=== PATIENT | female | born 1995 | race Two or more races ===

== ENCOUNTER 2024-08-16 08:19 | Emergency (ER) | payer MEDICAID, SELFPAY ==
[2024-08-16 09:01] VITALS: BP 108/74; PULSE 84; RESP 18; TEMP 36.9; O2SAT 100; BMI 23.3
--- NOTE | 2024-08-16 09:02 | XR_ITS ---
Examination: Cervical spine 3 views TECHNIQUE: AP lateral coned AP odontoid cervical spine 3 views Exam date and time: August 16, 2024 at 0914 hours INDICATIONS: Neck pain beginning 5 days ago no trauma FINDINGS: Straightening normal cervical lordosis Cervical thoracic dextroscoliosis 11 degrees No cervical fracture. Intact odontoid No significant cervical disc narrowing IMPRESSION: Cervical thoracic dextroscoliosis 11 degrees:
--- NOTE | 2024-08-16 09:02 | XR_ITS ---
Examination: Thoracic spine 3 views Technique one AP lateral coned lateral upper dorsal spine 3 views Exam date and time: August 16, 2024 at 0921 hours INDICATIONS: Upper back pain beginning 5 days ago. FINDINGS: Upper thoracic dextroscoliosis 9 degrees Lower thoracic levoscoliosis 8 degrees No thoracic fracture No significant thoracic disc narrowing Intact pedicles No cortical bone destruction IMPRESSION: Scoliosis as above
[2024-08-16] MEDS: IBUPROFEN TAB 600 MG TABLET PO (09:33)
[2024-08-16] MEDS: CYCLObenzaPRINE 5 MG TABLET PO (09:34)
--- NOTE | 2024-08-16 10:08 | PD.EDBACK ---
ED Back Injury Pain RME/HPI General Chief Complaint: Back Pain/Injury Stated Complaint: Upper back pain X 5 days Time Seen by Provider: 08/16/24 08:52 Source: patient Arrival date/time: 08/16/24 08:19 28-year-old female presents emergency department with complaints of upper back pain and neck pain. Patient denies any injury reports pain is elicited with movement or turning of her upper body. She does report her symptoms have been lingering on for the last 4 to 5 days. Is unaware if she slept wrong causes some torticollis. Has not tried any medications at home for symptoms. Denies fever, lethargy or chills. Mode of arrival: ambulatory Limitations: no limitations Related Data Previous Rx's ?Medication ?Instructions ?Recorded cyclobenzaprine 5 mg tablet 5 mg PO TID PRN muscle spasm #14 08/16/24 tabs ibuprofen 600 mg tablet 600 mg PO Q8H PRN fever or pain 08/16/24 #30 tabs Allergies Allergy/AdvReac Type Severity Reaction Status Date / Time clindamycin Allergy Verified 08/16/24 08:24 doxycycline Allergy Verified 08/16/24 08:24 Review of Systems Review of Systems Systems Reviewed: All systems reviewed, normal except as documented Narrative Review of Systems: Gen: No fever, no chills, no weight loss EYES: No discharge, no visual changes, no pain HEENT: No ear pain, no congestion, no sore throat, neck pain PULM: No shortness of breath, no cough, no congestion CV: No chest pain, no dyspnea on exertion, no palpitations GI: No nausea, no vomiting, no diarrhea, no pain, no constipation : No frequency, no urgency,? no dysuria Musc/skel: No joint pain, ++upper back pain Skin: No rash? ED Exam General Limitations: Present no limitations General appearance: Present alert and in no apparent distress Head Head exam: Present atraumatic Eye Eye exam: Present normal appearance, PERRL and EOMI ENT ENT exam: Present normal exam, normal oropharynx and mucous membranes moist Neck Neck exam: Present normal inspection, full ROM and trachea midline Chest Chest inspection: Present normal inspection and symmetric chest wall rise Respiratory Respiratory exam: Present normal lung sounds bilaterally Cardiovascular Cardiovascular exam: Present regular rate, normal rhythm and normal heart sounds Abdominal Exam Abdominal exam: Present soft and normal bowel sounds Extremities Exam Extremities exam: Present normal inspection and full ROM Back Exam Back exam: Present normal inspection and full ROM Neurological Exam Neurological exam: Present alert, oriented X3 and CN II-XII intact Psychiatric Psychiatric exam: Present normal affect and normal mood Skin Skin exam: Present warm, dry, intact and normal color Course Quality Measures none Orders Category Date Time Status XR cervical spine 2-3V Stat Exams 08/16/24 09:02 Completed XR thoracic spine 3V Stat Exams 08/16/24 09:02 Completed CYCLObenzaPRINE [Flexeril] Med 08/16/24 09:03 Discontinued 5 mg PO X1 ONE Ibuprofen Tab [Motrin Tab] Med 08/16/24 09:03 Discontinued 600 mg PO X1 ONE Vital Signs Vital signs: Vital Signs Temperature 98.4 F 08/16/24 09:01 Pulse Rate 84 08/16/24 09:01 Respiratory Rate 18 08/16/24 09:01 Blood Pressure 108/74 08/16/24 09:01 Pulse Oximetry (%) 100 08/16/24 09:01 Oxygen Delivery Method Room Air 08/16/24 09:01 Back Pain / Injury MDM Narrative MDM Narrative:: 28-year-old female evaluated the emergency department with complaints of upper back pain radiating to her neck worsened with turning or movements. Patient was given medication here and a muscle relaxer which alleviated mildly in her symptoms. X-rays did reveal she has some dextroscoliosis. Patient does not appear ill or toxic. Vital signs stable. Patient has not had any fever no lethargy decreased appetite. This is most likely musculoskeletal. Advised to follow-up with her PCP for further evaluation. Return to the emergency department this any worsening symptoms to condition. Patient data External records reviewed:: [facility] previous records Clinical information provided by:: patient Social determinants that could affect healthcare access:: none Patient has the following chronic illnesses:: no How is presenting disease/condition affected by chronic disease/condition?: no chronic disease Evaluation data The following diagnostics were reviewed and interpreted by me:: other (specify) Lab and/or radiology exams considered but not ordered:: no Interpretation Summary: Examination: Cervical spine 3 views TECHNIQUE: AP lateral coned AP odontoid cervical spine 3 views Exam date and time: August 16, 2024 at 0914 hours INDICATIONS: Neck pain beginning 5 days ago no trauma FINDINGS: Straightening normal cervical lordosis Cervical thoracic dextroscoliosis 11 degrees No cervical fracture. Intact odontoid No significant cervical disc narrowing IMPRESSION: Cervical thoracic dextroscoliosis 11 degrees: Examination: Thoracic spine 3 views Technique one AP lateral coned lateral upper dorsal spine 3 views Exam date and time: August 16, 2024 at 0921 hours INDICATIONS: Upper back pain beginning 5 days ago. FINDINGS: Upper thoracic dextroscoliosis 9 degrees Lower thoracic levoscoliosis 8 degrees No thoracic fracture No significant thoracic disc narrowing Intact pedicles No cortical bone destruction IMPRESSION: Scoliosis as above Medications / Prescriptions Medications or Prescriptions considered but not ordered:: no Medication administrations:: Medication Administration History Discontinued Medications Cyclobenzaprine HCl (Cyclobenzaprine 5 Mg Tablet) 5 mg PO X1 ONE Stop: 08/16/24 09:04 Last Admin: 08/16/24 09:34 Dose: 5 mg Documented By: ED Ibuprofen (Ibuprofen Tab 600 Mg Tablet) 600 mg PO X1 ONE Stop: 08/16/24 09:04 Last Admin: 08/16/24 09:33 Dose: 600 mg Documented By: ED All medications administered and effective Consultations Consultation(s) initiated? (list below): No Diagnosis Differential diagnosis back pain/injury: lumbar radiculopathy, sciatica, strain of lumbar region, thoracic back pain and other (Neck strain, scoliosis) Most likely diagnosis given after review of the tests above:: Neck strain scoliosis Admission Indicated Admission indicated?: not indicated Admission Request Was there a request for admission?: No Disposition Plan Disposition Plan: Discharge Discharge Attestation Discharge Attestation: The patient and all family members were given an opportunity to ask questions and understood the discharge instructions. Discharge instructions specifically effects, indications for sooner follow up or return to the emergency department, and the expected course of current diagnosis. Patient condition: Stable Discharge Plan Plan Patient Disposition: HOME (Self Care) Patient condition on transfer: Stable Prescriptions/Referrals Prescriptions/Med Rec: New ibuprofen 600 mg tablet 600 mg PO Q8H PRN (Reason: fever or pain) Qty: 30 0RF cyclobenzaprine 5 mg tablet 5 mg PO TID PRN (Reason: muscle spasm) Qty: 14 0RF Referrals: Billy Serrano MD [Primary Care Provider] - In 1 week Problem List Clinical Impression: Dextroscoliosis of cervicothoracic spine, Neck muscle strain Patient/Caregiver Discharge Instructions Discharge Activity: activity as tolerated Education Materials: Understanding Scoliosis, Understanding Cervical Strain Additional Instructions: Your x-ray demonstrates slight abnormal curvature of your spine which is called scoliosis 11 degrees. This might have caused you to have some degree of strain in your upper back and neck. Continue to take ibuprofen as directed can alternate between Tylenol Take your muscle relaxers. Follow-up with your primary doctor for further evaluation, may be physical therapy Return to the emergency department this any worsening symptoms or change in condition. Print Language: [place] Citizen Stand Alone Forms: Tricia Award Info., Patient Portal Info Letter PA/[employer] Supervising Physician PA/[employer] Supervising Physician: Dr Priest
== END 2024-08-16 11:00 | disposition home or self-care (01) ==
PROVIDERS: Emergency Provider Emergency Medicine; PCP Family Medicine
DX: S16.1XXA Strain of muscle, fascia and tendon at neck level, initial encounter (principal); M41.9 Scoliosis, unspecified; X58.XXXA Exposure to other specified factors, initial encounter
CPT/HCPCS: 72040; 72072; 99283; A9270